=== PATIENT | female | born 1955 | race Caucasian/White ===

== ENCOUNTER 2016-11-25 01:44 | Emergency (ER) | payer MEDICARE ==
[~2016-11-25] VITALS: Ht 154.9 cm; Wt 51.1 kg
[~2016-11-25 01:44] MED LIST: AMLO5TAB2 PO; LISI40TA PO
[2016-11-25 01:57] VITALS: BP 172/103; PULSE 73; RESP 14; TEMP 97.7; O2SAT 100
[2016-11-25 03:05] VITALS: BP 199/88; PULSE 69; RESP 18; O2SAT 100
[2016-11-25 04:21] VITALS: BP 170/89; PULSE 75; RESP 18; O2SAT 97
--- NOTE | 2016-11-25 04:24 | PD ---
HPI Chief Complaint: ENT Complaint Time Seen by Provider: 04:22 Travel History International Travel<30 days: No Contact w/Intl Traveler<30days: No Traveled to known affect area: No History of Present Illness HPI 61-year-old female presents to the emergency department for complaint of acute sinusitis. Patient's had sinusitis before but has been several years. Patient complains of frontal and maxillary pressure and discomfort. Patient complains of post-nasal, pharyngeal drainage. Patient is not aware of fever or chills. Patient denies ear pain or sudden onset or worst ever headache. Patient does complain of some dizziness. Facial pain is worsened by leaning forward. Patient also has history of hypertension and is prescribed lisinopril 20 mg twice daily but has been running out of her medication for some time now and has been taking lisinopril 20 mg every other day. Patient rates overall discomfort 5/10 intensity. Patient does not complain of diplopia photophobia throat pain ear pain neck pain or stiffness chest pain shortness of breath or wheezing. Patient has had some post nasal drainage associated cough. Patient denies phlegm production. Patient states she typically is prescribed Bactrim as this is something she can afford. Patient responds well to oral antibiotic reportedly. Patient states she cannot take antihistamines due to her allergy to all antihistamines which causes her to have itching of the scalp and increased drowsiness. Patient denies any nausea or vomiting chest pain abdominal pain flank pain dysuria frequency urgency skin rash or other complaints. This episode has been progressively worsening 2 weeks. Patient has not followed up with her primary care provider. [facility] Past Medical History Narrative Medical Arthritis sinusitis hypertension fibromyalgia hysterectomy no tobacco use nursing notes reviewed Arthritis: Yes Diminished Hearing: No Hypertension: Yes Medical other: Yes (FIBROMYALGIA, CHRONIC JAW AND HIP PAIN) Tetanus Vaccination: Unknown Influenza Vaccination: No ?: Not Menopausal: Yes Past Surgical History Hysterectomy: Yes Social History Alcohol Use: No Tobacco Use: No Substance Use: No Allergies-Medications (Allergen,Severity, Reaction): Coded Allergies: Tramadol (Verified Allergy, Intermediate, severe vomiting, 11/25/16) Uncoded Allergies: liquid codeine (Allergy, Intermediate, severe vomiting, 09/26/16) Reported Meds & Prescriptions Reported Meds & Active Scripts Active Lisinopril 20 Mg Tab 20 Mg PO BID 30 Days Bactrim DS (Sulfamethoxazole-Trimethoprim) 800-160 Mg Tab 1 Tab PO BID Lisinopril 40 Mg Tab 40 Mg PO DAILY Amlodipine (Amlodipine Besylate) 5 Mg Tab 5 Mg PO DAILY Review of Systems Except as stated in HPI: all other systems reviewed are Neg General / Constitutional: No: Fever, Chills HENT: Positive: Lightheadedness, Congestion, No: Sore Throat Cardiovascular: No: Chest Pain or Discomfort Respiratory: Positive: Cough, No: Wheezing Gastrointestinal: No: Nausea, Vomiting Genitourinary: No: Dysuria Musculoskeletal: No: Myalgias, Arthralgias Skin: No Rash Neurologic: Positive: Dizziness, No: Weakness Psychiatric: No: Anxiety Endocrine: No: Heat Intolerance Hematologic/Lymphatic: No: Easy Bruising Physical Exam Narrative GENERAL: Well-developed well-nourished female in no acute distress no respiratory distress SKIN: Warm and dry. HEAD: Atraumatic. Normocephalic. EYES: Pupils equal and round. No scleral icterus. No injection or drainage. ENT: No nasal bleeding or discharge. Mucous membranes pink and moist. Frontal and maxillary sinuses left greater than right tender to percussion; airway is patent mucous membranes moist; tympanic membranes no redness no dullness no loss of landmarks no fluid no perforation NECK: Trachea midline. No JVD. Supple no meningismus no nuchal rigidity CARDIOVASCULAR: Regular rate and rhythm. RESPIRATORY: No accessory muscle use. Clear to auscultation. Breath sounds equal bilaterally. GASTROINTESTINAL: Abdomen soft, non-tender, nondistended. Hepatic and splenic margins not palpable. MUSCULOSKELETAL: Extremities without clubbing, cyanosis, or edema. No obvious deformities. NEUROLOGICAL: Awake and alert. No obvious cranial nerve deficits. Motor grossly within normal limits. Five out of 5 muscle strength in the arms and legs. Normal speech. PSYCHIATRIC: Appropriate mood and affect; insight and judgment normal. Data Data Last Documented VS Vital Signs Date Time Temp Pulse Resp B/P Pulse Ox O2 Delivery O2 Flow Rate FiO2 11/25/16 04:21 75 18 170/89 97 Room Air 11/25/16 01:57 97.7 Orders Sulfamet-Trimeth Ds 800-160 Mg (Bactrim (11/25/16 04:30) Lisinopril (Prinivil) (11/25/16 04:30) MDM Medical Decision Making Medical Screen Exam Complete: Yes Emergency Medical Condition: Yes Medical Record Reviewed: Yes Differential Diagnosis Dizziness, sinusitis, vertigo, uncontrolled hypertension Narrative Course Patient given first dose of oral antibiotic and her evening dose of lisinopril Patient provided refill prescription for lisinopril 20 mg twice daily Patient tolerated medication in the emergency department well and given prescriptions for outpatient management encouraged follow-up with her primary care physician. Patient requests that the lisinopril be prescribed as lisinopril 20 mg twice daily as she can afford to pay for the prescription when written as requested but cannot afford to buy the lisinopril 40mg daily; patient does take her medication as prescribed by her PCP as lisinopril 20mg (2 ) daily. Diagnosis Primary Impression: Sinusitis, acute maxillary Qualified Code: J01.01 - Acute recurrent maxillary sinusitis Additional Impressions: HTN (hypertension) Qualified Code: I10 - Essential hypertension Medication refill Referrals: Primary Care Physician call for appointment Patient Instructions: General Instructions Additional Instructions: Increase fluid hydration Complete course of antibiotic as prescribed Resume taking your blood pressure medication daily Follow-up with your primary care provider call office to schedule appointment on Sunday Return to the emergency department for any concerns or change in condition Take acetaminophen/Tylenol as needed for fever 100.4F or greater and/or for minor pain May take as tolerated ibuprofen/Advil/Motrin per package directions 40 mg as often as every 6-8 hours for fever 100.4F or greater or for pain associated inflammation May use Afrin nasal decongestion spray 1 spray to each nostril twice daily for up to 22 days avoid prolonged use as will cause rebound congestion; do not use Afrin nasal decongestant spray his blood pressure is not controlled (less than 140/90 mmHg) Med/Other Pt SpecificInfo: Prescription(s) given Scripts Lisinopril 20 Mg Tab20 Mg PO BID 30 Days Ref 0 Prov:Cuca Tobar MD 11/25/16 Sulfamethoxazole-Trimethoprim (Bactrim DS)800-160 Mg Tab1 Tab PO BID #14 TAB Ref 0 Prov:Cuca Tobar MD 11/25/16 Disposition: 01 DISCHARGE HOME Condition: Stable Cuca Tobar MD Nov 25, 2016 04:24
[2016-11-25] MEDS ORDERED: SULFAMETHOXAZOLE-TRIMETHOPRIM DS 800-160 MG TAB PO ONE (04:30)
[2016-11-25] MEDS ORDERED: LISINOPRIL 20 MG TAB PO ONE (04:30)
[2016-11-25] MEDS ORDERED: LISI-515 PO (04:32)
[2016-11-25] MEDS ORDERED: BACT800T5 PO (04:32)
== END 2016-11-25 04:56 | disposition home or self-care (01) ==
LOC: PHED 01:44
DX: J01.01 Acute recurrent maxillary sinusitis (principal); I10 Essential (primary) hypertension; R42 Dizziness and giddiness; R05 Cough; Z87.39 Personal history of other diseases of the musculoskeletal system and connective tissue; Z76.0 Encounter for issue of repeat prescription
CPT/HCPCS: 99283

== ENCOUNTER 2017-04-11 07:36 | Emergency (ER) | payer MEDICARE ==
[~2017-04-11] VITALS: Ht 154.9 cm; Wt 52.0 kg
[~2017-04-11 07:36] MED LIST changes: +BACT800T5 PO; +LISI-515 PO
[2017-04-11 07:53] VITALS: BP 220/101; PULSE 71; RESP 16; TEMP 97.6; O2SAT 98
--- NOTE | 2017-04-11 08:04 | PD ---
HPI Chief Complaint: ENT Complaint Time Seen by Provider: 08:03 Travel History International Travel<30 days: No Contact w/Intl Traveler<30days: No Traveled to known affect area: No History of Present Illness HPI 62-year-old female came to the emergency room with history of sinus headache. No history of fever or chills. Patient says the symptoms have been going on for past couple days. Incidentally when her vitals were checked her pressure was noticed to be extremely high. Patient says she knows that she has history of hypertension but has not taken her medications for past 2 months since she does not have a primary care and doesn't want to pay any co-pay for urgent care or any other place. She used to be on lisinopril 20 mg twice a day that seem to be working good for her. She does not appear to be in any significant distress currently. [facility] Past Medical History Narrative Medical List of her past medical, surgical, social and family history is reviewed from the nursing note. Arthritis: Yes Anxiety: Yes Cardiovascular Problems: Yes (htn on meds but been out for 2 months) Diminished Hearing: No Headaches: Yes Hypertension: Yes Respiratory: Yes (sinus problems chronic) Tetanus Vaccination: < 5 Years Influenza Vaccination: No ?: Not Menopausal: Yes Tubal Ligation: Yes Past Surgical History Hysterectomy: Yes Social History Alcohol Use: No Tobacco Use: No Substance Use: No Allergies-Medications (Allergen,Severity, Reaction): Coded Allergies: tramadol (Unverified Allergy, Intermediate, severe vomiting, 04/11/17) . Uncoded Allergies: liquid codeine (Allergy, Intermediate, severe vomiting, 04/11/17) . Comments List of her allergies reviewed from the nursing note. Reported Meds & Prescriptions Reported Meds & Active Scripts Active Amoxicillin 250 Mg Chew 250 Mg CHEW TID Lisinopril 20 Mg Tab 20 Mg PO BID Narrative Medication List of her home medications reviewed from the nursing note. Review of Systems Except as stated in HPI: all other systems reviewed are Neg Physical Exam Narrative GENERAL: Awake, alert, no obvious distress SKIN: Focused skin assessment warm/dry. HEAD: Atraumatic. Normocephalic. EYES: Pupils equal and round. No scleral icterus. No injection or drainage. ENT: No nasal bleeding or discharge. Mucous membranes pink and moist. No erythema of the pharynx or exudates. TMs look bilaterally normal. Tenderness on the maxillary and frontal sinus on palpation NECK: Trachea midline. No JVD. CARDIOVASCULAR: Regular rate and rhythm. No murmur appreciated. RESPIRATORY: No accessory muscle use. Clear to auscultation. Breath sounds equal bilaterally. GASTROINTESTINAL: Abdomen soft, non-tender, nondistended. Hepatic and splenic margins not palpable. MUSCULOSKELETAL: No obvious deformities. No clubbing. No cyanosis. No edema. NEUROLOGICAL: Awake and alert. No obvious cranial nerve deficits. Motor grossly within normal limits. Normal speech. PSYCHIATRIC: Appropriate mood and affect; insight and judgment normal. Data Data Last Documented VS Vital Signs Date Time Temp Pulse Resp B/P (MAP) Pulse Ox O2 Delivery O2 Flow Rate FiO2 04/11/17 09:38 78 16 179/93 (121) 98 04/11/17 08:44 Room Air 04/11/17 07:53 97.6 Orders Orders Complete Blood Count With Diff (04/11/17 08:10) Basic Metabolic Panel (Bmp) (04/11/17 08:10) Clonidine (Catapres) (04/11/17 08:15) Lisinopril (Prinivil) (04/11/17 09:00) Labs Laboratory Tests Test 04/11/17 08:20 White Blood Count 5.5 TH/MM3 Red Blood Count 4.30 MIL/MM3 Hemoglobin 13.0 GM/DL Hematocrit 38.8 % Mean Corpuscular Volume 90.2 FL Mean Corpuscular Hemoglobin 30.3 PG Mean Corpuscular Hemoglobin Concent 33.6 % Red Cell Distribution Width 12.1 % Platelet Count 240 TH/MM3 Mean Platelet Volume 7.9 FL Neutrophils (%) (Auto) 54.2 % Lymphocytes (%) (Auto) 37.9 % Monocytes (%) (Auto) 4.7 % Eosinophils (%) (Auto) 1.9 % Basophils (%) (Auto) 1.3 % Neutrophils # (Auto) 2.9 TH/MM3 Lymphocytes # (Auto) 2.1 TH/MM3 Monocytes # (Auto) 0.3 TH/MM3 Eosinophils # (Auto) 0.1 TH/MM3 Basophils # (Auto) 0.1 TH/MM3 CBC Comment DIFF FINAL Differential Comment Blood Urea Nitrogen 18 MG/DL Creatinine 0.76 MG/DL Random Glucose 93 MG/DL Calcium Level 8.9 MG/DL Sodium Level 142 MEQ/L Potassium Level 3.9 MEQ/L Chloride Level 109 MEQ/L Carbon Dioxide Level 26.2 MEQ/L Anion Gap 7 MEQ/L Estimat Glomerular Filtration Rate 77 ML/MIN MDM Medical Decision Making Medical Screen Exam Complete: Yes Emergency Medical Condition: Yes Medical Record Reviewed: Yes Differential Diagnosis Hypertensive crisis, sinusitis, medication noncompliance Narrative Course 8:53 AM blood test results are back and within normal limits. Patient was given by mouth clonidine 0.1 mg and the current blood pressure is 220. I have ordered by mouth lisinopril after her labs came back normal. Patient will be discharged home on prescription for lisinopril and amoxicillin. Procedures EKG Prior to Arrival: No Diagnosis Primary Impression: Sinusitis, acute maxillary Qualified Codes: J01.01 - Acute recurrent maxillary sinusitis Additional Impressions: HTN (hypertension) Qualified Codes: I10 - Essential (primary) hypertension Noncompliance with medication regimen Referrals: Primary Care Physician Additional Instructions: You must have a primary care physician to get her medication refill. He has been given information regarding [facility]. Please follow-up with them. Get the prescription refilled and take them as directed. Return to the ER if the condition worsens in any other new concerns. Med/Other Pt SpecificInfo: Prescription(s) given Scripts Amoxicillin (Amoxicillin) 250 Mg Chew 250 MG CHEW TID for Infection, #10 TAB 0 Refills Prov: Birgit Davies MD 04/11/17 Lisinopril (Lisinopril) 20 Mg Tab 20 MG PO BID, #30 TAB 0 Refills Prov: Birgit Davies MD 04/11/17 Disposition: 01 DISCHARGE HOME Condition: Stable Birgit Davies MD Apr 11, 2017 08:04
[2017-04-11] MEDS ORDERED: cloNIDine HCL 0.1 MG TAB PO ONE (08:15)
[2017-04-11 08:26] LABS: AUTOMATED NEUTROPHIL # 2.9 TH/MM3 (1.8-7.7); BASOPHIL # 0.1 TH/MM3 (0-0.2); BASOPHIL % 1.3 % (0.0-2.0); EOSINOPHIL # 0.1 TH/MM3 (0-0.4); EOSINOPHIL % 1.9 % (0.0-4.0); HEMATOCRIT 38.8 % (35.0-46.0); HEMO FLAGS DIFF FINAL; LYMPH % 37.9 % (9.0-44.0); LYMPHOCYTE # 2.1 TH/MM3 (1.0-4.8); MEAN CELL VOLUME 90.2 FL (80.0-100.0); MEAN CORPUSCULAR HEMOGLOBIN 30.3 PG (27.0-34.0); MEAN CORPUSCULAR HGB CONC 33.6 % (32.0-36.0); MONO % 4.7 % (0.0-8.0); NEUT % 54.2 % (16.0-70.0); PLATELET COUNT 240 TH/MM3 (150-450); RED CELL DISTRIBUTION WIDTH 12.1 % (11.6-17.2); WHITE BLOOD COUNT 5.5 TH/MM3 (4.0-11.0)
[2017-04-11 08:35] LABS: POTASSIUM 3.9 MEQ/L (3.5-5.1)
[2017-04-11 08:39] LABS: BICARBONATE 26.2 MEQ/L (21.0-32.0)
[2017-04-11] MEDS ORDERED: LISI-515 PO ×2 (08:39→08:56)
[2017-04-11 08:44] VITALS: BP 220/106; PULSE 74; RESP 16; O2SAT 99
[2017-04-11] MEDS ORDERED: AMOX250C CHEW (08:56)
[2017-04-11] MEDS ORDERED: LISINOPRIL 20 MG TAB PO ONE (09:00)
[2017-04-11] MEDS ORDERED: LISINOPRIL 5 MG TAB PO ONE (09:15)
[2017-04-11 09:38] VITALS: BP 179/93
== END 2017-04-11 09:58 | disposition home or self-care (01) ==
LOC: PHED 07:36
DX: J01.01 Acute recurrent maxillary sinusitis (principal); I10 Essential (primary) hypertension
CPT/HCPCS: 80048; 85025; 99284

== ENCOUNTER 2017-06-23 12:25 | Inpatient (IN) | payer MEDICARE ==
[~2017-06-23] VITALS: Ht 154.9 cm; Wt 50.5 kg
[2017-06-23] VITALS (13 sets, daily range): BP systolic 85–159; BP diastolic 52–109; PULSE 74–113; RESP 16–18; TEMP 97.5–97.9; O2SAT 97–100
[~2017-06-23 12:25] MED LIST changes: -AMLO5TAB2 PO; +AMOX250C CHEW; -BACT800T5 PO; -LISI40TA PO
[2017-06-23] MEDS ORDERED: ASPIRIN 325 MG TAB PO ONE (12:45)
[2017-06-23] MEDS ORDERED: NITROGLYCERIN 0.4 MG SL 25 TABS/BTL SL ONE (12:45)
[2017-06-23] MEDS ORDERED: SODIUM CHLORIDE 0.9% FLUSH 10 ML FLUSH IVF PRN (12:45)
--- NOTE | 2017-06-23 13:03 | RADRPT ---
EXAM DATE/TIME: 06/23/2017 12:42 [facility] COMPARISON: No previous studies available for comparison. INDICATIONS : Onset of mid chest pain today MEDICAL HISTORY : None. SURGICAL HISTORY : None. ENCOUNTER: Initial ACUITY: 1 day PAIN SCORE: 9/10 LOCATION: Bilateral chest FINDINGS: A single view of the chest demonstrates the lungs to be symmetrically aerated without evidence of mas s, infiltrate or effusion. The cardiomediastinal contours are unremarkable. Osseous structures are intact. CONCLUSION: No acute disease. Chris Shanks MD on June 23, 2017 at 13:01 Board Certified Radiologist. This report was verified electronically.
[2017-06-23 13:07] LABS: AUTOMATED NEUTROPHIL # 3.8 TH/MM3 (1.8-7.7); BASOPHIL # 0.1 TH/MM3 (0-0.2); BASOPHIL % 0.9 % (0.0-2.0); EOSINOPHIL % 0.7 % (0.0-4.0); HEMATOCRIT 38.1 % (35.0-46.0); HEMO FLAGS DIFF FINAL; LYMPHOCYTE # 1.6 TH/MM3 (1.0-4.8); MEAN CELL VOLUME 92.1 FL (80.0-100.0); MEAN CORPUSCULAR HGB CONC 33.6 % (32.0-36.0); MONO % 4.7 % (0.0-8.0); NEUT % 66.7 % (16.0-70.0); PLATELET COUNT 249 TH/MM3 (150-450); RED BLOOD COUNT 4.13 MIL/MM3 (4.00-5.30); RED CELL DISTRIBUTION WIDTH 12.9 % (11.6-17.2); WHITE BLOOD COUNT 5.8 TH/MM3 (4.0-11.0)
[2017-06-23 13:20] LABS: CHLORIDE 107 MEQ/L (98-107); POTASSIUM 3.7 MEQ/L (3.5-5.1); SODIUM (NA) 141 MEQ/L (136-145)
[2017-06-23 13:24] LABS: ANION GAP 8 MEQ/L (5-15); BICARBONATE 25.6 MEQ/L (21.0-32.0); BLOOD UREA NITROGEN 16 MG/DL (7-18); MAGNESIUM 2.4 MG/DL (1.5-2.5)
[2017-06-23 13:27] LABS: ALT (GPT) 46 U/L (10-53); APTT (PATIENT) 26.5 SEC (24.3-30.1); AST (GOT) 35 U/L (15-37); GLOMERULAR FILTRATION RATE 75 ML/MIN (>89); INTERNATIONAL NORMALIZED RATIO 0.9 RATIO; PROTHROMBIN TIME - PATIENT 10.3 SEC (9.8-11.6)
[2017-06-23 13:28] LABS: TOTAL BILIRUBIN ADULT 0.3 MG/DL (0.2-1.0)
[2017-06-23 13:30] LABS: ALKALINE PHOSPHATASE 73 U/L (45-117)
[2017-06-23 13:42] LABS: CREATINE KINASE 84 U/L (26-192)
[2017-06-23] MEDS ORDERED: ONDANSETRON HCL 4 MG/2 ML VIAL IV PUSH ONE (14:00)
[2017-06-23] MEDS ORDERED: MORPHINE SULFATE 8 MG/ML INJ IV PUSH ONE (14:00)
[2017-06-23] MEDS ORDERED: MORPHINE SULFATE 4 MG/ML INJ IV PUSH ONE (14:00)
[2017-06-23] MEDS ORDERED: HEPARIN SODIUM - IV 10,000 UNITS/10 ML VIAL IV ONE (14:30)
[2017-06-23] MEDS: HEPARIN-D5W 25,000 U/250 ML 250 ML IV PRN (15:05)
--- NOTE | 2017-06-23 15:29 | PD ---
HPI Chief Complaint: Chest Pain Time Seen by Provider: 12:31 Travel History International Travel<30 days: No Contact w/Intl Traveler<30days: No Traveled to known affect area: No History of Present Illness HPI 62 y/o female presents with central chest pain that started while she was talking at and anger management class today. She states she has history of anxiety but she has not gotten pain with that before. She states that she has no other concurrent complaints. The pain is sharp and worse when she moves. She denies other specific modifying factors. She denies taking an aspirin yet today. 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 She denies prior cardiac workup. She denies any other concurrent complaints. PFSH Past Medical History Arthritis: Yes Anxiety: Yes Cardiovascular Problems: Yes Diminished Hearing: No Headaches: Yes Hypertension: Yes Medical other: Yes (FIBROMYALGIA) Respiratory: Yes (sinus problems chronic) Immunizations Current: Yes Menopausal: Yes Tubal Ligation: Yes Past Surgical History Hysterectomy: Yes Family History Narrative Family History Denies cardiac family history Social History Alcohol Use: No Tobacco Use: No Substance Use: No Allergies-Medications (Allergen,Severity, Reaction): Coded Allergies: tramadol (Unverified Allergy, Intermediate, severe vomiting, 06/23/17) . Uncoded Allergies: liquid codeine (Allergy, Intermediate, severe vomiting, 06/23/17) Reported Meds & Prescriptions Reported Meds & Active Scripts Active Lisinopril 20 Mg Tab 20 Mg PO BID Review of Systems Except as stated in HPI: all other systems reviewed are Neg Physical Exam Narrative GENERAL: Well-nourished, well-developed patient. Anxious SKIN: Warm and dry. HEAD: Normocephalic and atraumatic. EYES: No injection or drainage. ENT: No nasal drainage noted. NECK: Supple, trachea midline. CARDIOVASCULAR: Regular rate and rhythm RESPIRATORY: Breath sounds equal bilaterally. No accessory muscle use. GASTROINTESTINAL: Abdomen soft, non-tender, nondistended. EXTREMITIES: No edema. NEUROLOGICAL: Awake and alert. Motor and sensory grossly within normal limits. Normal speech. Data Data Last Documented VS Vital Signs Date Time Temp Pulse Resp B/P (MAP) Pulse Ox O2 Delivery O2 Flow Rate FiO2 06/23/17 14:11 16 06/23/17 13:03 97.5 84 159/94 (115) 99 Room Air Orders Orders Electrocardiogram (06/23/17 12:35) Ckmb (Isoenzyme) Profile (06/23/17 12:35) Complete Blood Count With Diff (06/23/17 12:35) Comprehensive Metabolic Panel (06/23/17 12:35) Magnesium (Mg) (06/23/17 12:35) Prothrombin Time / Inr (Pt) (06/23/17 12:35) Act Partial Throm Time (Ptt) (06/23/17 12:35) Troponin I (06/23/17 12:35) Chest, Single Ap (06/23/17 12:35) Ecg Monitoring (06/23/17 12:35) Bilateral Bp Monitoring (06/23/17 12:35) Iv Access Insert/Monitor (06/23/17 12:35) Oximetry (06/23/17 12:35) Aspirin (Aspirin) (06/23/17 12:45) Sodium Chloride 0.9% Flush (Ns Flush) (06/23/17 12:45) Nitroglycerin Sl (Nitrostat Sl) (06/23/17 12:45) Electrocardiogram (06/23/17 12:27) Morphine Inj (Morphine Inj) (06/23/17 14:00) Ondansetron Inj (Zofran Inj) (06/23/17 14:00) Morphine Inj (Morphine Inj) (06/23/17 14:00) Code Status (06/23/17 14:09) Admit Order (Ed Use Only) (06/23/17 14:20) Heparin Infusion GRETEL.Q1H (06/23/17 14:20) Heparin Inj (Heparin Inj) (06/23/17 14:30) Heparin Inj (Heparin Inj) (06/23/17 20:30) Heparin Inj (Heparin Inj) (06/23/17 20:30) Heparin-D5w 25,000 U/250 Ml (Heparin-D5w (06/23/17 15:00) Cbc No Diff, Includes Plts (06/26/17 06:00) Act Partial Throm Time (Ptt) (06/23/17 21:20) Occult Blood (Hemoccult) Stool (06/23/17 14:20) Consult Cardiology (06/23/17 ) Labs Laboratory Tests Test 06/23/17 12:30 White Blood Count 5.8 TH/MM3 Red Blood Count 4.13 MIL/MM3 Hemoglobin 12.8 GM/DL Hematocrit 38.1 % Mean Corpuscular Volume 92.1 FL Mean Corpuscular Hemoglobin 31.0 PG Mean Corpuscular Hemoglobin Concent 33.6 % Red Cell Distribution Width 12.9 % Platelet Count 249 TH/MM3 Mean Platelet Volume 8.5 FL Neutrophils (%) (Auto) 66.7 % Lymphocytes (%) (Auto) 27.0 % Monocytes (%) (Auto) 4.7 % Eosinophils (%) (Auto) 0.7 % Basophils (%) (Auto) 0.9 % Neutrophils # (Auto) 3.8 TH/MM3 Lymphocytes # (Auto) 1.6 TH/MM3 Monocytes # (Auto) 0.3 TH/MM3 Eosinophils # (Auto) 0.0 TH/MM3 Basophils # (Auto) 0.1 TH/MM3 CBC Comment DIFF FINAL Differential Comment Prothrombin Time 10.3 SEC Prothromb Time International Ratio 0.9 RATIO Activated Partial Thromboplast Time 26.5 SEC Blood Urea Nitrogen 16 MG/DL Creatinine 0.78 MG/DL Random Glucose 107 MG/DL Total Protein 7.8 GM/DL Albumin 4.6 GM/DL Calcium Level 9.1 MG/DL Magnesium Level 2.4 MG/DL Alkaline Phosphatase 73 U/L Aspartate Amino Transf (AST/SGOT) 35 U/L Alanine Aminotransferase (ALT/SGPT) 46 U/L Total Bilirubin 0.3 MG/DL Sodium Level 141 MEQ/L Potassium Level 3.7 MEQ/L Chloride Level 107 MEQ/L Carbon Dioxide Level 25.6 MEQ/L Anion Gap 8 MEQ/L Estimat Glomerular Filtration Rate 75 ML/MIN Total Creatine Kinase 84 U/L Troponin I 1.07 NG/ML [facility] Medical Decision Making Medical Screen Exam Complete: Yes Emergency Medical Condition: Yes Medical Record Reviewed: Yes (past history confirmed) Interpretation(s) EKG #1 shows wandering baseline with possible elevation V2 Repeat EKG shows no significant concurrent ST elevation or T-wave inversion with improved baseline CBC & BMP Diagram 06/23/17 12:30 Total Protein 7.8, Albumin 4.6, Calcium Level 9.1, Magnesium Level 2.4, Alkaline Phosphatase 73, Aspartate Amino Transf (AST/SGOT) 35, Alanine Aminotransferase (ALT/SGPT) 46, Total Bilirubin 0.3 Last 24 hours Impressions Chest X-Ray 06/23/17 1235 Signed Impressions: Service Date/Time: Friday, June 23, 2017 12:42 - CONCLUSION: No acute disease. Chris Shanks MD troponin elevated at 1.07 Differential Diagnosis NV, gastritis, musculoskeletal, takotsubo syndrome, pericarditis Narrative Course Will check blood work, EKG, chest x-ray and dose with aspirin and nitroglycerin and reevaluate Patient has gone from a 9 to a 5. Dose with morphine and follow. Patient updated about troponin and initially wanting to leave AMA but understands significance of troponin and agrees to stay. Patient states if she gets sicker she does not want to be intubated but she is okay with compressions, electric shock and CPR Critical Care Narrative Aggregate critical care time was 35 minutes. Time to perform other separately billable procedures was not included in the critical care time. My time did not include minutes spent treating any other patients simultaneously or on activities that did not directly contribute to the patient's treatment. The services I provided to this patient were to treat and/or prevent clinically significant deterioration that could result in: Cardiogenic shock, arrhythmia, I provided critical care services requiring my management, as noted below: Chart data review, documentation time, medication orders and management, vital sign assessments/reviewing monitor data, ordering and reviewing lab tests, ordering and interpreting/reviewing x-rays and diagnostic studies, care of the patient and discussion of the patient with the admitting physicians. Physician Communication Physician Communication dr abel states to place on heparin and keep npo with admit to [facility] last agrees to admit Diagnosis Primary Impression: NSTEMI (non-ST elevated myocardial infarction) Additional Impression: HTN (hypertension) Qualified Codes: I10 - Essential (primary) hypertension Admitting Information Admitting Physician Requests: Admit Bri Chung MD Jun 23, 2017 15:29
--- NOTE | 2017-06-23 16:53 | HHI.HP ---
[facility] Non-Staff Admission Diagnosis NSTEMI Diagnoses: Chief Complaint: chest pain Travel History International Travel<30 Days: No Contact w/Intl Traveler <30 Da: No Traveled to Known Affected Are: No History of Present Illness 62-year-old white female being admitted for an NSTEMI. Patient was in her usual state of health until about earlier this morning when she was in an anger management class and suddenly experienced an onset of 10 out of 10 crushing chest pain that radiated to her left arm. Patient had some shortness of breath and mild nausea. No vomiting. Was not able to identify any alleviating or exacerbating factors until she got to the emergency room where she got some nitroglycerin which helped her pain. Patient denies ever experiencing such an event in the past, denies any cardiac history. Review of Systems Except as stated in HPI: all other systems reviewed are Neg Past Family Social History Past Medical History Hypertension, arthritis, anxiety, fibromyalgia Past Surgical History Hysterectomy Allergies: Coded Allergies: tramadol (Unverified Allergy, Intermediate, severe vomiting, 06/23/17) . Uncoded Allergies: liquid codeine (Allergy, Intermediate, severe vomiting, 06/23/17) Family History Lung cancer, breast cancer, brain cancer Social History Denies smoking, drug use, alcohol use Physical Exam Vital Signs Vital Signs Date Time Temp Pulse Resp B/P (MAP) Pulse Ox O2 Delivery O2 Flow Rate FiO2 06/23/17 14:11 16 06/23/17 13:11 16 06/23/17 13:03 97.5 84 16 159/94 (115) 99 Room Air 06/23/17 12:30 113 20 99 Room Air 06/23/17 12:30 16 99 Room Air 06/23/17 12:30 97.9 113 16 153/109 (124) 99 Physical Exam VS: Afebrile GENERAL: White female, middle-aged, lying in bed, awake, alert, no acute distress SKIN: Warm and dry. EYES: No scleral icterus. No injection or drainage. ENT: No nasal bleeding or discharge. Mucous membranes pink and moist. CARDIOVASCULAR: Regular rate and rhythm. no murmurs RESPIRATORY: No accessory muscle use. Clear to auscultation. Breath sounds equal bilaterally. GASTROINTESTINAL: Abdomen soft, non-tender, nondistended. Hepatic and splenic margins not palpable. Extremities: No clubbing, cyanosis, or edema. No obvious deformities. MUSCULOSKELETAL: Extremities without clubbing, cyanosis, or edema. No obvious deformities. grossly intact ROM with 5/5 strength in upper and lower extremities proximally. Has some tenderness to the sternum but the patient states this is due to her fibromyalgia NEUROLOGICAL: Awake and alert. No obvious cranial nerve deficits. No facial droop nor slurred speech noted. PSYCHIATRIC: Appropriate mood and affect; insight and judgment normal. Laboratory Laboratory Tests Test 06/23/17 12:30 White Blood Count 5.8 Red Blood Count 4.13 Hemoglobin 12.8 Hematocrit 38.1 Mean Corpuscular Volume 92.1 Mean Corpuscular Hemoglobin 31.0 Mean Corpuscular Hemoglobin Concent 33.6 Red Cell Distribution Width 12.9 Platelet Count 249 Mean Platelet Volume 8.5 Neutrophils (%) (Auto) 66.7 Lymphocytes (%) (Auto) 27.0 Monocytes (%) (Auto) 4.7 Eosinophils (%) (Auto) 0.7 Basophils (%) (Auto) 0.9 Neutrophils # (Auto) 3.8 Lymphocytes # (Auto) 1.6 Monocytes # (Auto) 0.3 Eosinophils # (Auto) 0.0 Basophils # (Auto) 0.1 CBC Comment DIFF FINAL Differential Comment Prothrombin Time 10.3 Prothromb Time International Ratio 0.9 Activated Partial Thromboplast Time 26.5 Blood Urea Nitrogen 16 Creatinine 0.78 Random Glucose 107 Total Protein 7.8 Albumin 4.6 Calcium Level 9.1 Magnesium Level 2.4 Alkaline Phosphatase 73 Aspartate Amino Transf (AST/SGOT) 35 Alanine Aminotransferase (ALT/SGPT) 46 Total Bilirubin 0.3 Sodium Level 141 Potassium Level 3.7 Chloride Level 107 Carbon Dioxide Level 25.6 Anion Gap 8 Estimat Glomerular Filtration Rate 75 Total Creatine Kinase 84 Troponin I 1.07 Result Diagram: 06/23/17 1230 06/23/17 1230 Imaging Last Impressions Chest X-Ray 06/23/17 1235 Signed Impressions: Service Date/Time: Friday, June 23, 2017 12:42 - CONCLUSION: No acute disease. Chris MD Jan Bella VTE Risk Assessment Caprini VTE Risk Assessment: Mod/High Risk (score >= 2) Caprini Risk Assessment Model Point Value = 1 Point Value = 2 Point Value = 3 Point Value = 5 Age 41-60 Minor surgery BMI > 25 kg/m2 Swollen legs Varicose veins or History of unexplained or recurrent spontaneous Oral contraceptives or hormone replacement Sepsis (< 1 month) Serious lung disease, including pneumonia (< 1 month) Abnormal pulmonary function Acute myocardial infarction Congestive heart failure (< 1 month) History of inflammatory bowel disease Medical patient at bed rest Age 61-74 Arthroscopic surgery Major open surgery (> 45 min) Laparoscopic surgery (> 45 min) Malignancy Confined to bed (> 72 hours) Immobilizing plaster cast Central venous access Age >= 75 History of VTE Family history of VTE Factor V Leiden Prothrombin [id number] Lupus anticoagulant Anticardiolipin antibodies Elevated serum homocysteine Heparin-induced thrombocytopenia Other congenital or acquired thrombophilia Stroke (< 1 month) Elective arthroplasty Hip, pelvis, or leg fracture Acute spinal cord injury (< 1 month) Prophylaxis Regimen Total Risk Factor Score Risk Level Prophylaxis Regimen 0-1 Low Early ambulation 2 Moderate Order ONE of the following: *Sequential Compression Device (SCD) *Heparin 5000 units SQ BID 3-4 Higher Order ONE of the following medications: *Heparin 5000 units SQ TID *Enoxaparin/Lovenox 40 mg SQ daily (WT < 150 kg, CrCl > 30 mL/min) *Enoxaparin/Lovenox 30 mg SQ daily (WT < 150 kg, CrCl > 10-29 mL/min) *Enoxaparin/Lovenox 30 mg SQ BID (WT < 150 kg, CrCl > 30 mL/min) AND/OR *Sequential Compression Device (SCD) 5 or more Highest Order ONE of the following medications: *Heparin 5000 units SQ TID (Preferred with Epidurals) *Enoxaparin/Lovenox 40 mg SQ daily (WT < 150 kg, CrCl > 30 mL/min) *Enoxaparin/Lovenox 30 mg SQ daily (WT < 150 kg, CrCl > 10-29 mL/min) *Enoxaparin/Lovenox 30 mg SQ BID (WT < 150 kg, CrCl > 30 mL/min) AND *Sequential Compression Device (SCD) Assessment and Plan Assessment and Plan NSTEMI - Discussed with ER attending who was has related that cardiology has been consulted, patient will be transferred [facility] - Aspirin, starting Lipitor, Lopressor, heparin, Nitroglycerin prn - telemetry - I independently reviewed EKG which shows sinus tachycardia with no acute ST segment or T-wave changes that are concerning for ischemia or infarction. HTN - continue home lisinopril heparin for DVT prevention Physician Certification 2 Midnight Certification Type: Admission for Inpatient Services Order for Inpatient Services The services are ordered in accordance with Medicare regulations or non- Medicare payer requirements, as applicable. In the case of services not specified as inpatient-only, they are appropriately provided as inpatient services in accordance with the 2-midnight benchmark. Estimated LOS (days): 2 2 days is the estimated time the patient will need to remain in the hospital, assuming treatment plan goals are met and no additional complications. Post-Hospital Plan: Home Mark Ying MD Jun 23, 2017 16:53
[2017-06-23] MEDS ORDERED: NITROGLYCERIN 0.3 MG SL 100 TABS/BTL SL PRN (17:00)
[2017-06-23] MEDS ORDERED: ATORVASTATIN 40 MG TAB PO ONE (18:00)
[2017-06-23] MEDS ORDERED: HEPARIN SODIUM - IV 10,000 UNITS/10 ML VIAL IV PRN ×2 (20:30)
[2017-06-23] MEDS ORDERED: MORPHINE SULFATE 2 MG/ML INJ SQ PRN (20:45)
[2017-06-23] MEDS ORDERED: LISINOPRIL 20 MG TAB PO SCH (21:00)
[2017-06-24] VITALS (23 sets, daily range): BP systolic 100–117; BP diastolic 58–74; PULSE 63–93; RESP 16–18; TEMP 97.9–98.7; O2SAT 96–99
[2017-06-24 00:23] LABS: APTT (PATIENT) 57.3 SEC (24.3-30.1)
[2017-06-24 00:26] LABS: BICARBONATE 29.2 MEQ/L (21.0-32.0); POTASSIUM 3.5 MEQ/L (3.5-5.1)
[2017-06-24 07:59] LABS: APTT (PATIENT) 55.7 SEC (24.3-30.1)
[2017-06-24] MEDS ORDERED: POTASSIUM CHLORIDE 10 MEQ CAP PO ONE (08:45)
[2017-06-24] MEDS ORDERED: LISINOPRIL 20 MG TAB PO SCH (09:00)
--- NOTE | 2017-06-24 11:46 | MB ---
cc: SUSAN MUÑOZ MD DATE OF CONSULTATION: 06/24/2017 REASON FOR CONSULTATION: Non ST-elevation GA. HISTORY OF PRESENT ILLNESS This very nice 62-year-old female without significant past medical history for heart disease but does have a history hypertension, arthritis and anxiety. Yesterday she was in an anger management class when she started developing some sudden onset of substernal chest pain radiating towards the left arm. She did have associated shortness of breath and nausea. The pain became so severe she presented to the emergency department. There, electrocardiogram some more nonspecific changes primarily in the inferior leads. She did get nitroglycerin with partial relief. Over the course of her emergency department visit, her symptoms subsided. She is currently chest pain free. The troponin came back positive and she was transferred over to [facility] for consideration of cardiac catheterization. Denies any prior cardiac catheterization or stress testing. PAST MEDICAL HISTORY: 1. Hypertension. 2. Arthritis. 3. Anxiety. 4. Fibromyalgia. ALLERGIES: TRAMADOL FAMILY HISTORY: Denies any family history of early coronary disease or sudden cardiac . SOCIAL HISTORY Denies alcohol, tobacco or drug use. REVIEW OF SYSTEMS 12-point review of systems was performed, negative otherwise as noted in the history of present illness. PHYSICAL EXAMINATION VITAL SIGNS: Temperature 98, pulse 77, blood pressure 108/71 mmHg. General: Alert and oriented x3 in no acute distress. HEENT: Exam shows pupils reactive to light and accommodation. Extraocular movements intact. No elevation in the jugular venous distention. No thyromegaly, no lymphadenopathy. No carotid bruits. Lungs: Clear to auscultation bilaterally. Cardiovascular: Regular rate and rhythm without murmurs, rubs or gallops. Abdomen: Nontender, nondistended. Good bowel sounds. No hepatosplenomegaly. Extremities: No clubbing, cyanosis or edema. Good peripheral pulses. Cranial nerves intact. Motor sensory is grossly intact. Electrocardiogram: Normal sinus rhythm, ST depression on the initial electrocardiogram, inferior lateral leads. Right-sided electrocardiogram shows some mild T-wave changes. LABORATORY DATA: INR 0.9, sodium 143, potassium 3.5, BUN 16, creatinine 0.8. Troponin peaked at 4.8. WBC 5.8, hemoglobin 12.8, platelet count is 249. ASSESSMENT Non ST-elevation GA. Hypertension. PLAN The patient's symptoms were suggestive of acute coronary syndrome with some nonspecific electrocardiographic changes. Cardiac biomarkers are elevated consistent with [id number] myocardial infarction. We discussed cardiac catheterization. She is agreeable. We will proceed with cardiac catheterization tomorrow. Will make her n.p.o. after midnight. Will continue heparin and aggressive medical management. Will obtain 2-D echocardiogram. MD NUZHAT Rob/CHRISTELLE /10:44 AM /11:18 AM
--- NOTE | 2017-06-24 12:56 | EKG ---
Date Performed: 06/23/2017 Time Performed: 20:46:00 PTAGE: 62 years EKG: Sinus rhythm Reversal of limb leads and reversal of chest leads Recommend repeat tracing with proper hook-up of l denise Abnormal ECG PREVIOUS TRACING : 06/23/2017 12.36 DOCTOR: Facundo Vance Interpretating Date/Time 06/24/2017 12:55:56
--- NOTE | 2017-06-24 12:56 | EKG ---
Date Performed: 06/23/2017 Time Performed: 12:27:30 PTAGE: 62 years EKG: SINUS TACHYCARDIA Poor initial anterior forces NO PREVIOUS TRACING DOCTOR: Facundo Vance Interpretating Date/Time 06/24/2017 12:54:41
--- NOTE | 2017-06-24 12:56 | EKG ---
Date Performed: 06/23/2017 Time Performed: 12:36:35 PTAGE: 62 years EKG: Sinus rhythm NORMAL ECG PREVIOUS TRACING : 06/23/2017 12.27 Since previous tracing, heart rate is slower and there is s light improvement in the R-force in lead V2. DOCTOR: Facundo Vance Interpretating Date/Time 06/24/2017 12:55:09
--- NOTE | 2017-06-24 12:58 | EKG ---
Date Performed: 06/24/2017 Time Performed: 03:13:26 PTAGE: 62 years EKG: Sinus rhythm Reversal of limb leads and reversal of chest leads Recommend repeat tracing with proper hook-up Abno rmal ECG PREVIOUS TRACING : 06/23/2017 20.46 Since previous tracing, the chest and limb lead hook-ups ar e still incorrect. DOCTOR: Facundo Vance Interpretating Date/Time 06/24/2017 12:56:44
--- NOTE | 2017-06-24 13:18 | ECHRPT ---
Indication: CHEST PAIN CONCLUSIONS Normal left ventricular size. Mild concentric left ventricular hypertrophy. The left ventricular systolic function is severely reduced with an estimated ejection fraction in th e range of 30-35%. Moderate hypokinesis of mid anterior, apical, inferoapical segments. The left atrial size is mildly dilated. Mild mitral valve regurgitation. There is mild tricuspid valve regurgitation. The estimated pulmonary arterial pressure is 26.8 mmHg. BP: 100 / 59 HR: 71 Rhythm: Sinus MEASUREMENTS (Male / Female) Normal Values Technical Quality:Fair 2D ECHO LV Diastolic Diameter PLAX 4.7 cm 4.2 - 5.9 / 3.9 - 5.3 cm LV Systolic Diameter PLAX 3.7 cm IVS Diastolic Thickness 0.7 cm 0.6 - 1.0 / 0.6 - 0.9 cm LVPW Diastolic Thickness 0.7 cm 0.6 - 1.0 / 0.6 - 0.9 cm LV Relative Wall Thickness 0.3 LVOT Diameter 1.9 cm Aortic Root Diameter 2.7 cm LA Systolic Diameter LX 3.1 cm 3.0 - 4.0 / 2.7 - 3.8 cm M-MODE AV Cusp Separation MM 1.9 cm DOPPLER AV Peak Velocity 117.0 cm/s AV Peak Gradient 5.5 mmHg AV Mean Gradient 3.0 mmHg AV Velocity Time Integral 18.8 cm LVOT Peak Velocity 79.0 cm/s LVOT Peak Gradient 2.5 mmHg LVOT Velocity Time Integral 13.7 cm LVOT Cardiac Index 1871.1 cm/minm AV Area Cont Eq vti 2.1 cm AV Area Cont Eq pk 1.9 cm Mitral E Point Velocity 53.3 cm/s Mitral A Point Velocity 79.0 cm/s Mitral E to A Ratio 0.7 LV E' Lateral Velocity 4.2 cm/s Mitral E to LV E' Lateral Ratio 12.7 LV E' Septal Velocity 3.5 cm/s Mitral E to LV E' Septal Ratio 15.2 TR Peak Velocity 205.0 cm/s TR Peak Gradient 16.8 mmHg Right Atrial Pressure 10.0 mmHg Pulmonary Artery Systolic Pressu 26.8 mmHg Right Ventricular Systolic Press 26.8 mmHg PV Peak Velocity 68.4 cm/s PV Peak Gradient 1.9 mmHg FINDINGS LEFT VENTRICLE Normal left ventricular size. Mild concentric left ventricular hypertrophy. The left ventricular systolic function is severely reduced with an estimated ejection fraction in th e range of 30-35%. Moderate hypokinesis of mid anterior, apical, inferoapical segments. RIGHT VENTRICLE Normal right ventricular size and systolic function. LEFT ATRIUM The left atrial size is mildly dilated. RIGHT ATRIUM The right atrial size is normal. ATRIAL SEPTUM Normal atrial septal thickness without atrial level shunting by limited color doppler interrogation. AORTA The aortic root and proximal ascending aorta are normal in size on limited imaging. MITRAL VALVE Mild mitral valve regurgitation. AORTIC VALVE Trileaflet aortic valve. No aortic valve stenosis or regurgitation. TRICUSPID VALVE There is mild tricuspid valve regurgitation. The estimated pulmonary arterial pressure is 26.8 mmHg. PULMONARY VALVE No pulmonary valve regurgitation or stenosis. VESSELS The inferior vena cava is normal in size. PERICARDIUM No pericardial effusion. Endy Mason MD, FACC (Electronically Signed) Final Date:24 June 2017 13:17
--- NOTE | 2017-06-24 15:45 | HHI.PR ---
Subjective Remarks The patient was anxious about the procedure tomorrow. She said her chest pain has resolved. She denies any shortness of breath. She says her blood pressure is never low and she believes the heparin drip is causing that. She has been ambulating. Discussed with nursing of the bedside. Objective Vitals Vital Signs Date Time Temp Pulse Resp B/P (MAP) Pulse Ox O2 Delivery O2 Flow Rate FiO2 06/24/17 15:00 73 06/24/17 15:00 98.6 78 16 103/59 (74) 99 06/24/17 14:00 75 06/24/17 13:00 78 06/24/17 12:00 75 06/24/17 11:00 97.9 77 16 117/74 (88) 98 06/24/17 11:00 76 06/24/17 10:00 77 06/24/17 09:00 78 06/24/17 08:00 77 06/24/17 08:00 98.7 77 16 108/71 (83) 98 06/24/17 06:09 71 06/24/17 05:04 71 06/24/17 04:20 66 06/24/17 03:45 63 06/24/17 03:45 98.0 66 18 100/59 (73) 97 06/24/17 02:05 68 06/24/17 01:12 65 06/24/17 00:28 70 06/23/17 23:15 97.7 82 17 85/52 (63) 97 06/23/17 23:00 74 06/23/17 22:00 76 06/23/17 21:00 82 06/23/17 20:00 88 06/23/17 19:34 06/23/17 19:30 97.9 83 18 153/85 (107) 100 06/23/17 19:21 85 16 100 Room Air 06/23/17 19:13 85 16 145/89 (107) 100 Room Air 06/23/17 16:55 76 16 145/74 (97) 98 Room Air 06/23/17 15:45 80 16 148/80 (102) 99 Room Air I/O 06/23/17 06/23/17 06/23/17 06/24/17 06/24/17 06/24/17 07:00 15:00 23:00 07:00 15:00 23:00 Intake Total 360 ml Output Total 300 ml Balance 60 ml Intake Oral 360 ml Output Urine Total 300 ml # Voids 1 Result Diagram: 06/23/17 1230 06/23/17 2330 Imaging Last Impressions Chest X-Ray 06/23/17 1235 Signed Impressions: Service Date/Time: Friday, June 23, 2017 12:42 - CONCLUSION: No acute disease. Chris Shanks MD Objective Remarks GENERAL: No acute distress. SKIN: Warm and dry. EYES: No scleral icterus. No injection or drainage. ENT: No nasal bleeding or discharge. Mucous membranes pink and moist. CARDIOVASCULAR: Regular rate and rhythm. No murmurs. RESPIRATORY: No accessory muscle use. Clear to auscultation. Breath sounds equal bilaterally. GASTROINTESTINAL: Abdomen soft, non-tender, nondistended. Hepatic and splenic margins not palpable. EXTREMITIES: No clubbing, cyanosis, or edema. No obvious deformities. MUSCULOSKELETAL: Extremities without clubbing, cyanosis, or edema. No obvious deformities. Grossly intact ROM with 5/5 strength in upper and lower extremities proximally. NEUROLOGICAL: Awake and alert. No obvious cranial nerve deficits. No facial droop nor slurred speech noted. PSYCHIATRIC: Appropriate mood and affect; insight and judgment normal. Medications and IVs Current Medications Medications (Trade) Dose Ordered Sig/Kel Route Start Time Stop Time Status Last Admin (NS Flush) 2 ml UNSCH PRN IVF 06/23/17 12:45 (Heparin Inj) 5,000 units UNSCH PRN IV 06/23/17 20:30 (Heparin Inj) 2,500 units UNSCH PRN IV 06/23/17 20:30 Heparin Sodium/ Dextrose 250 ml @ 6 mls/hr TITRATE PRN IV 06/23/17 15:00 06/23/17 15:05 (Lipitor) 40 mg HS PO 06/24/17 21:00 (Nitrostat Sl) 0.3 mg Q5M PRN SL 06/23/17 17:00 (Prinivil) 40 mg DAILY PO 06/24/17 09:00 Future Hold (Morphine Inj) 2 mg Q3H PRN SQ 06/23/17 20:45 A/P Assessment and Plan NSTEMI Troponins were elevated at 4.8. Cardiology consult appreciated. Chest pain has resolved. EKG without acute ischemia. Chest x-ray unremarkable. - Continue heparin drip. - continue statin. - Check lipid profile and hemoglobin A1c. - telemetry. - Catheterization in the a.m. per cardiology. HTN Blood pressure has been borderline low. - hold home lisinopril. - Hold off on starting a beta kim at this time. heparin gtt for DVT prevention Discharge Planning Awaiting cardiac catheterization and cardiology clearance Ayo Lloyd DO Jun 24, 2017 15:45
[2017-06-24] MEDS: ATORVASTATIN 40 MG TAB PO SCH (20:36)
[2017-06-25] VITALS (17 sets, daily range): BP systolic 114–152; BP diastolic 58–76; PULSE 59–100; RESP 16; TEMP 97.4–98; O2SAT 98–99
[2017-06-25] MEDS: HEPARIN-D5W 25,000 U/250 ML 250 ML IV PRN (00:46)
[2017-06-25 05:07] LABS: APTT (PATIENT) 59.4 SEC (24.3-30.1)
[2017-06-25 05:13] LABS: GLUCOSE,FASTING 95 MG/DL (74-99)
[2017-06-25 05:19] LABS: HDL CHOLESTEROL 30.1 MG/DL (40.0-60.0); LDL CHOLESTEROL 53 MG/DL (0-99)
[2017-06-25] MEDS ORDERED: HEPARIN-D5W 25,000 U/250 ML 250 ML IV PRN (07:30)
--- NOTE | 2017-06-25 07:52 | PD.CARD.PN ---
Subjective Subjective Remarks feeling well. denies chest pain,sob or palpitations. Objective Medications Current Medications Medications (Trade) Dose Ordered Sig/Kel Route Start Time Stop Time Status Last Admin (NS Flush) 2 ml UNSCH PRN IVF 06/23/17 12:45 (Heparin Inj) 5,000 units UNSCH PRN IV 06/23/17 20:30 (Heparin Inj) 2,500 units UNSCH PRN IV 06/23/17 20:30 (Lipitor) 40 mg HS PO 06/24/17 21:00 06/24/17 20:36 (Nitrostat Sl) 0.3 mg Q5M PRN SL 06/23/17 17:00 (Prinivil) 40 mg DAILY PO 06/24/17 09:00 Future Hold (Morphine Inj) 2 mg Q3H PRN SQ 06/23/17 20:45 Heparin Sodium/ Dextrose 250 ml @ 6 mls/hr TITRATE PRN IV 06/25/17 07:30 Vital Signs / I&O Vital Signs Date Time Temp Pulse Resp B/P (MAP) Pulse Ox O2 Delivery O2 Flow Rate FiO2 06/25/17 06:09 61 06/25/17 05:10 63 06/25/17 04:17 97.5 72 16 114/58 (76) 98 06/25/17 04:17 59 06/25/17 02:02 63 06/25/17 01:00 66 06/25/17 00:00 66 06/24/17 23:00 98.2 67 18 104/58 (73) 99 06/24/17 23:00 69 06/24/17 22:00 66 06/24/17 21:00 74 06/24/17 20:00 74 06/24/17 19:05 98.1 74 18 103/61 (75) 96 06/24/17 19:05 93 06/24/17 18:00 72 06/24/17 17:00 74 06/24/17 16:00 70 06/24/17 15:00 73 06/24/17 15:00 98.6 78 16 103/59 (74) 99 06/24/17 14:00 75 06/24/17 13:00 78 06/24/17 12:00 75 06/24/17 11:00 97.9 77 16 117/74 (88) 98 06/24/17 11:00 76 06/24/17 10:00 77 06/24/17 09:00 78 06/24/17 08:00 77 06/24/17 08:00 98.7 77 16 108/71 (83) 98 I/O 06/24/17 06/24/17 06/24/17 06/25/17 06/25/17 06/25/17 07:00 15:00 23:00 07:00 15:00 23:00 Intake Total 360 ml 320 ml 240 ml Output Total 300 ml 900 ml 350 ml Balance 60 ml -580 ml -110 ml Intake Oral 360 ml 320 ml 240 ml Output Urine Total 300 ml 900 ml 350 ml # Voids 1 Physical Exam GENERAL: SKIN: Warm and dry. HEAD: Atraumatic. Normocephalic. EYES: Pupils equal and round. ENT: No nasal bleeding or discharge. Mucous membranes pink and moist. NECK: Trachea midline. No JVD. CARDIOVASCULAR: Regular rate and rhythm. no murmurs. RESPIRATORY: No accessory muscle use. Clear to auscultation. Breath sounds equal bilaterally. GASTROINTESTINAL: Abdomen soft, non-tender, nondistended. MUSCULOSKELETAL: Extremities without clubbing, cyanosis, or edema. No obvious deformities. NEUROLOGICAL: Awake and alert. No obvious cranial nerve deficits. Motor grossly within normal limits. Normal speech. PSYCHIATRIC: Appropriate mood and affect; insight and judgment normal. Laboratory Laboratory Tests Test 06/25/17 04:20 Activated Partial Thromboplast Time 59.4 SEC Fasting Glucose 95 MG/DL Triglycerides Level 190 MG/DL Cholesterol Level 121 MG/DL LDL Cholesterol 53 MG/DL HDL Cholesterol 30.1 MG/DL Cholesterol/HDL Ratio 4.01 RATIO Assessment and Plan Problem List: (1) NSTEMI (non-ST elevated myocardial infarction) ICD Codes: I21.4 - Non-ST elevation (NSTEMI) myocardial infarction Status: Acute Assessment and Plan 63 yo WF with no prior cardiac history presented with chest pain which has no resolved. Asymptomatic overnight. NSTEMI- will plan for [facility] today. cardiomyopathy- reduced EF 30-35% with moderate anterio-apical hypokinesis. Perri Reyes Jun 25, 2017 07:52
--- NOTE | 2017-06-25 09:10 | HHI.PR ---
Subjective Remarks The patient endorsed severe anxiety recently. She said she started to develop her chest pain when she was a anger management class and developed pain in the chest, neck and back. She also had palpitations. She currently still gets stressed out and has been having some intermittent chest pain. Objective Vitals Vital Signs Date Time Temp Pulse Resp B/P (MAP) Pulse Ox O2 Delivery O2 Flow Rate FiO2 06/25/17 06:09 61 06/25/17 05:10 63 06/25/17 04:17 97.5 72 16 114/58 (76) 98 06/25/17 04:17 59 06/25/17 02:02 63 06/25/17 01:00 66 06/25/17 00:00 66 06/24/17 23:00 98.2 67 18 104/58 (73) 99 06/24/17 23:00 69 06/24/17 22:00 66 06/24/17 21:00 74 06/24/17 20:00 74 06/24/17 19:05 98.1 74 18 103/61 (75) 96 06/24/17 19:05 93 06/24/17 18:00 72 06/24/17 17:00 74 06/24/17 16:00 70 06/24/17 15:00 73 06/24/17 15:00 98.6 78 16 103/59 (74) 99 06/24/17 14:00 75 06/24/17 13:00 78 06/24/17 12:00 75 06/24/17 11:00 97.9 77 16 117/74 (88) 98 06/24/17 11:00 76 06/24/17 10:00 77 I/O 06/24/17 06/24/17 06/24/17 06/25/17 06/25/17 06/25/17 07:00 15:00 23:00 07:00 15:00 23:00 Intake Total 360 ml 320 ml 240 ml Output Total 300 ml 900 ml 350 ml Balance 60 ml -580 ml -110 ml Intake Oral 360 ml 320 ml 240 ml Output Urine Total 300 ml 900 ml 350 ml # Voids 1 Result Diagram: 06/23/17 1230 06/23/17 2330 Imaging Last Impressions Chest X-Ray 06/23/17 1235 Signed Impressions: Service Date/Time: Friday, June 23, 2017 12:42 - CONCLUSION: No acute disease. Chris Shanks MD Objective Remarks GENERAL: No acute distress. SKIN: Warm and dry. EYES: No scleral icterus. No injection or drainage. ENT: No nasal bleeding or discharge. Mucous membranes pink and moist. CARDIOVASCULAR: Regular rate and rhythm. No murmurs. RESPIRATORY: No accessory muscle use. Clear to auscultation. Breath sounds equal bilaterally. GASTROINTESTINAL: Abdomen soft, non-tender, nondistended. Hepatic and splenic margins not palpable. EXTREMITIES: No clubbing, cyanosis, or edema. No obvious deformities. MUSCULOSKELETAL: Extremities without clubbing, cyanosis, or edema. No obvious deformities. Grossly intact ROM with 5/5 strength in upper and lower extremities proximally. NEUROLOGICAL: Awake and alert. No obvious cranial nerve deficits. No facial droop nor slurred speech noted. PSYCHIATRIC: Teary-eyed. Medications and IVs Current Medications Medications (Trade) Dose Ordered Sig/Kel Route Start Time Stop Time Status Last Admin (NS Flush) 2 ml UNSCH PRN IVF 06/23/17 12:45 (Heparin Inj) 5,000 units UNSCH PRN IV 06/23/17 20:30 (Heparin Inj) 2,500 units UNSCH PRN IV 06/23/17 20:30 (Lipitor) 40 mg HS PO 06/24/17 21:00 06/24/17 20:36 (Nitrostat Sl) 0.3 mg Q5M PRN SL 06/23/17 17:00 (Prinivil) 40 mg DAILY PO 06/24/17 09:00 Future Hold (Morphine Inj) 2 mg Q3H PRN SQ 06/23/17 20:45 Heparin Sodium/ Dextrose 250 ml @ 6 mls/hr TITRATE PRN IV 06/25/17 07:30 A/P Assessment and Plan NSTEMI Troponins were elevated at 4.8. Cardiology consult appreciated. Chest pain has resolved. EKG without acute ischemia. Chest x-ray unremarkable. Echo shows reduced EF 30-35% with moderate anterio-apical hypokinesis. LDL not elevated. - Continue heparin drip. - continue statin. - Check hemoglobin A1c. - telemetry. - Catheterization today per cardiology. HTN Blood pressure has been well-controlled. - hold home lisinopril. - Hold off on starting a beta kim at this time as blood pressure has been on the low side. Anxiety Chronic problem. The patient does not wish to speak with the psychiatrist at this time. - The patient was encouraged to avoid anxiety provoking situations as it can lead to further cardiac events. Hyperglycemia Glucose was elevated upon presentation. Possibly stress reaction. - Check a hemoglobin A1c. heparin gtt for DVT prevention Discharge Planning Awaiting cardiac catheterization and cardiology clearance Ayo Lloyd DO Jun 25, 2017 09:10
[2017-06-25] MEDS ORDERED: HEPARIN-NS/PF INJ 1,000 ML ONE (12:20)
[2017-06-25] MEDS ORDERED: HEPARIN SODIUM - IV 10,000 UNITS/10 ML VIAL ONE (12:21)
[2017-06-25] MEDS ORDERED: MIDAZOLAM HCL 2 MG/2 ML VIAL ONE (12:21)
[2017-06-25] MEDS ORDERED: NITROGLYCERIN INJ 5 ML ONE (12:23)
[2017-06-25] MEDS ORDERED: DEFIB EXTERNAL (13:12)
[2017-06-25] MEDS ORDERED: MISC INFORMATION XX ONE (13:15)
[2017-06-25] MEDS ORDERED: BACITRACIN OINT 0.9 GM PKT TOP ONE (13:15)
--- NOTE | 2017-06-25 13:15 | CATHPROC ---
[facility] HIS Report Study Information Study Number Admission Scheduled Start Study Start [id number] 06/23/2017 06/25/2017 Jun 25 2017 12:10PM Study Type Left Heart Cath Referring Institution Admit Source Facility Department 1 Emergency department [facility] Physician and Clinical Staff Initial Endy Calle Miller Supervisor Natalie Yousif BSN Recorder Cammy Edmond RCIS TECH2 Scrub Tomas Morrison RCIS(BS) Procedures Performed Procedure Location (Site) Vessel Name Coronary Angiograms LCA Left Coronary Coronary Angiograms RCA Right Coronary Equipment Time Senior Underwriter Description Size Mfg Part Number Used/Scraped TRANSDUCER, TRUWAVE [id number] 12:11 RUSSELL GALDAMEZ * Used W/STOCKCOCK *[id number] *[id number] *[id number] 12:11 [employer] PACK, CCL CUSTOM * Used *[id number] 12:11 [employer] SUPPORT, ARTERIAL ADULT [id number] *[id number] Used [id number] 12:11 [employer] PACER PEN, SKIN DUAL W/ RULER * Used *[id number] BAND, RADIAL COMPRESSION TR [id number] 13:04 Suksh Tech. 24CM Used SHORT 24 *[id number] SHEATH, FR6 RADIAL PRELUDE 12:11 [employer] Tech. FR 6 [id number] Used EASE 11CM [id number] 12:11 [employer]. WIRE, EXCHANGE 260CM 3MMJ 260CM Used *[id number] 12:11 NYCOMED OMNIPAQUE, 350 MG, 150ML 150ML [id number] Used [id number] 12:11 [employer] BLANKET,WARM AIR CCL * Used *[id number] History: Current Medications Medication Dosage/Unit Route Frequency Last Date/Time Taken LISINOPRIL History: Allergies Allergy Reaction tramadol severe vomiting liquid codeine severe vomiting History: Risk Factors Family History of Hypertension Dyslipidemia Previous DE Previous Heart Failure Premature CAD Yes Yes No No No Prior Valve Prior PCI Prior CABG Surgery No No No Cerebrovascular Peripheral Artery Chronic Lung On Dialysis Diabetes Disease Disease Disease No No No No No History: Symptoms/Diagnosis Selection Items Chest pain History: Stress Tests Stress or Imaging Studies Performed No History: Other Current Smoker No Labs Hgb (g/dl) Hct (%) WBC (l/cumm) Platelets (thousands) 11.60-17.00 35.00-51.00 4.00-11.00 150.00-450.00 12.8 38.1 5.8 249 Glucose (mg/dl) BUN (mg/dl) Creatinine (mg/dl) BUN:Creatinine (1:x) 74.00-106.00 7.00-18.00 0.50-1.30 10.00-20.00 95 16 0.8 20 Na (meq/l) K (meq/l) Cl (meq/l) CO2 (mmol/L) Ca (mg/dl) 136.00-145.00 3.50-5.10 98.00-107.00 21.00-32.00 8.50-10.10 143 3.5 107 29.2 8.9 PT (sec) PTT (sec) INR (PTT:PT) 9.80-11.60 24.30-30.10 0.90-1.10 10.3 59.4 0.9 Troponin I (ng/ml) CPK (u/l) CPK-MB (ng/ML) 0.02-0.05 26.00-308.00 0.50-3.60 2.93 84 Not Drawn Medication Medication Total Dose (Bolus/Oral) Medication Total Dosage/Unit 1% XYLOCAINE 20 mL FENTANYL 75 mcg HEPARIN 3000 units NTG (IC) 200 mcg VERSED 2 mg Medications (Bolus/Oral) Medication Time Given Dosage/Unit Administered By Reason 06/25/2017 12:49:47 VERSED 1 mg Natalie Yousif 1 mg VERSED given in lab by Natalie Yousif BSN in Right Wrist via Peripheral IV. Ordered by Endy Sánchez. 06/25/2017 12:50:09 FENTANYL 50 mcg Natalie Yousif 50 mcg FENTANYL given in lab by Natalie Yousif BSN in Right Wrist via Peripheral IV. Ordered by Endy Mason. 06/25/2017 12:54:15 1% XYLOCAINE 20 mL Endy Mason 20 mL 1% XYLOCAINE given in lab by Endy Mason in Right Radial via Subcutaneous. Ordered by Endy Mason. 06/25/2017 12:56:09 NTG (IC) 200 mcg Endy Mason 200 mcg NTG (IC) given in lab by Endy Mason in Right Radial via Intra-coronary. Ordered by Endy Mason. 06/25/2017 12:57:50 HEPARIN 3000 units Natalie Yousif PM 3000 units HEPARIN given in lab by Natalie Yousif BSN in Right Wrist via Peripheral IV. Ordered by Endy Mason. 06/25/2017 12:58:43 VERSED 1 mg Natalie Yousif PM 1 mg VERSED given in lab by Natalie Yousif BSN in Right Wrist via Peripheral IV. Ordered by Endy Sánchez. 06/25/2017 12:59:00 FENTANYL 25 mcg Natalie Yousif PM 25 mcg FENTANYL given in lab by Natalie Yousif BSN in Right Wrist via Peripheral IV. Ordered by Endy Mason. Medication (Drip) Medication Time Given Dosage/Unit Concentration/Unit Diluent (ml) Solutio n 06/25/2017 12:10:45 IV Solutions 0 mL (IV) 500 NaCl .9 PM Patient arrived on IV Solutions in Right Wrist via Peripheral IV. Pump/Drip Flow = 20 ml/hr using NaC l .9. Initial Case Assessment Cardiovascular HR Rhythm NIBP Chest Pain 90 sr 171/96 1 Circulatory - Right Pulses Dorsalis Pedis Femoral Radial 1 2 2 Scale (0,1,2,3,4,d) Scale (0,1,2,3,4,d) Neurological State Oriented to time-place- Alert Moves all extremities person Respiration - General Respiration Rate SpO2 (%) (B/min) 13 100 Final Case Assessment Cardiovascular HR Rhythm NIBP Chest Pain 89 SR 133/76 0 Circulatory - Right Pulses Dorsalis Pedis Femoral Radial 1 2 2 Scale (0,1,2,3,4,d) Scale (0,1,2,3,4,d) Neurological State Oriented to time-place- Alert Moves all extremities person Respiration - General Respiration Rate SpO2 (%) (B/min) 16 94 Chronological Log Time Study Chronological Log 12:10:34 Patient arrived via Bed. 12:10:34 Patient Name, D.O.B, / Armband Verified By R.N. 12:10:36 Consent signed by the physician and the patient and verified by the [facility] staff. 12:10:36 Pre-op and post- op instructions given; patient acknowledges understanding of instructions. 12:10:37 Verbal Stimulation=2 Physical Stimulation=2 Airway=2 Respiration=2 TOTAL=8. (0=absent, 1=li mited, 2=present) 12:10:40 Patient has been NPO for More than 6Hrs. 12:10:41 Skin Breakdown-none 12:10:42 Iain Prominences Protected 12:10:44 A # 20 IV was noted in the Wrist (right). Grade = patent 12:10:45 Patient arrived on IV Solutions in Right Wrist via Peripheral IV. Pump/Drip Flow = 20 ml/hr using NaCl .9. 12:10:46 History and physical on the chart or being dictated. Vitals capture started with the following parameters, Patient=Adult, Interval=5 min, Initial Pr qjnodj=516 mmHg, 12:13:26 Deflation Rate=5 mmHg, Cuff placed on Left Arm 12:14:23 HR=91 bpm, MCWT=517/91 mmhg, DcI2=853.0 %, Resp=14 B/min, Pain=0, Philly=10, Mendez=2 12:19:02 MF=105 bpm, HHGB=292/96 mmhg, WcK4=938.0 %, Resp=14 B/min, Philly=10 Assessment: Initial Case, HR=90 BPM, Rhythm=sr, JHKQ=080/96 mmhg, Chest Pain=1 Right Pulses: Remy Ped=1, Femoral=2, Radial=2 12:20:30 Neurological: State=Alert, Ox3, COOPER Respiration: Resp=13 B/min, MgO6=452 % 12:21:15 Right Radial and right groin prepped with 2% chlorhexidine, and draped after a 3 min. waiti ng time. 12::41 Reference ECG taken 12:24:10 MD paged 12:24:33 HR=89 bpm, AQKH=049/93 mmhg, WtI4=469.0 %, Resp=15 B/min 12:29:04 HR=92 bpm, CXWO=228/85 mmhg, CzR7=975.0 %, Resp=9 B/min, Pain=0, Philly=10 12:29:20 Pressure channel 1 zeroed. 12:29:43 MD responded 12:34:03 HR=84 bpm, FFAH=833/84 mmhg, ShW7=465.0 %, Resp=11 B/min, Pain=0, Philly=10, Mendez=2 12:39:02 HR=87 bpm, ICCJ=213/86 mmhg, SpO2=99.0 %, Resp=13 B/min 12:44:03 HR=89 bpm, ZJOA=930/88 mmhg, SpO2=99.0 %, Resp=12 B/min, Pain=0, Philly=10, Mendez=2 12:48:19 MD arrived. 12:49:04 HR=88 bpm, OVTK=160/92 mmhg, SpO2=99.0 %, Resp=17 B/min 12:49:47 1 mg VERSED given in lab by Natalie Yousif BSN in Right Wrist via Peripheral IV. Orde red by Endy Mason. 50 mcg FENTANYL given in lab by Natalie Yousif BSN in Right Wrist via Peripheral IV. Orde red by Marlon, 12:50:09 Endy. Time Out. Correct patient, correct procedure, correct physician, power injector not loaded with contrast with surgical 12:53:19 team present. Time Out Concurred by MD and individual staff in procedure. 12:53:37 Case Start 12:54:07 HR=83 bpm, EDLD=637/81 mmhg, SpO2=93.0 %, Resp=14 B/min 12:54:15 20 mL 1% XYLOCAINE given in lab by Endy Mason in Right Radial via Subcutaneous. Ordered by Endy Mason. 12:55:41 Access site was Radial Artery. RIGHT A SHEATH, FR6 RADIAL PRELUDE EASE 11CM FR 6 was advanced into the Radial (right) using the Perc utaneous 12:55:45 technique. 12:56:09 200 mcg NTG (IC) given in lab by Endy Mason in Right Radial via Intra-coronary. Ordered by Endy Mason. A JR 5.0 INFINITI CATHETER FR 5 was advanced over a wire. OMNIPAQUE, 350 MG, 150ML 150ML was us ed for 12:57:48 injections. 3000 units HEPARIN given in lab by Natalie Yousif BSN in Right Wrist via Peripheral IV. O rdered by Marlon, 12:57:50 Endy. Recorded Pressure: LV, CS=136, Condition=Condition 1 12:57:54 (Left Ventricle) LV 141/-3/6 Recorded Pressure: LV, Ao, ZH=861, Condition=Condition 1 12:58:12 (Left Ventricle) LV 134/3/0, (Aorta) Ao 167/97/129 12:58:43 1 mg VERSED given in lab by Natalie Yousif BSN in Right Wrist via Peripheral IV. Orde red by Endy Mason. 25 mcg FENTANYL given in lab by Natalie Yousif BSN in Right Wrist via Peripheral IV. Orde red by Marlon, 12:59:00 Endy. 12:59:04 HR=86 bpm, HKZA=634/82 mmhg, SpO2=91.0 %, Resp=10 B/min 12:59:05 The RCA was injected and visualized at various angles. OMNIPAQUE, 350 MG, 150ML 150ML use d. After removing the current catheter a JL 3.5 INFINITI CATHETER FR 5 was advanced over a WIRE, EXCHANGE 260CM 13:00:37 3MMJ 260CM. 13:01:49 The LCA was injected and visualized at various angles. OMNIPAQUE, 350 MG, 150ML 150ML use d. 13:02:39 Catheter was removed 13:03:02 Case End 13:04:01 HR=90 bpm, YGQN=370/76 mmhg, SpO2=94 %, Resp=10 B/min, Pain=0, Philly=10, Mendez=2 Assessment: Final Case, HR=89 BPM, Rhythm=SR, DGTT=319/76 mmhg, Chest Pain=0 Right Pulses: Remy Ped=1, Femoral=2, Radial=2 13:06:58 Neurological: State=Alert, Ox3, COOPER Respiration: Resp=16 B/min, SpO2=94 % Radial Compression Device Used. 12 mLs of air placed in BAND, RADIAL COMPRESSION TR SHORT 24 2 4CM. Affected 13:07:42 hand 94 % O2 saturation. 13:08:03 No case complications noted. 13:08:04 Cine recording checked. 13:08:05 Bedside Report will be given. 13:08:14 Patient moved to BED 13:09:04 HR=81 bpm, GNKE=923/73 mmhg, SpO2=91.0 %, Resp=12 B/min 13:13:38 Vitals capture stopped. 13:14:40 [facility] End Study - Contrast Media Used In Study Contrast Total Opened (mL) Total Used (mL) Total Wasted (mL) Omnipaque 50 50 0 End Study - Maximum Contrast Load Max Contrast Load (mL) 315.6 End Study - Radiation Exposure Fluoro Time (minutes) 2.3 End Study - Sheaths Sheaths Pulled By Sheath Hold Time (min) Tomas Morrison End Study - Patient Disposition Complications Transferred To Critical Care Bed
--- NOTE | 2017-06-25 13:45 | MA ---
cc: SUSAN MUÑOZ DATE: 06/25/2017 INDICATION [id number] MS. PROCEDURES PERFORMED 1. Fluoroscopy with interpretation. 2. Coronary angiography. 3. Left heart catheterization. METHOD The risks, benefits and alternatives were discussed with the patient. The patient understood and consented to the procedure. The patient was brought to the catheterization lab and placed on the catheterization table. The right wrist was prepped and draped in sterile fashion. Right wrist was anesthetized with 2% lidocaine. Right radial artery was cannulated and a 6-Belgian 11 cm sheath was placed without difficulty. 200 mcg of intra-arterial nitroglycerin in addition to 3000 units of intravenous heparin was administered. LEFT HEART CATHETERIZATION Intraventricular hemodynamics measured at 110/10 mmHg with left ventricular end-diastolic pressure 12 mmHg. No aortic stenosis by transaortic valvular pullback gradient. CORONARY ANGIOGRAPHY 1. Left main is short but angiographically normal. 2. Left anterior descending coronary is tortuous but angiographically normal. 3. Left circumflex coronary gives rise to an obtuse marginal branch, angiographically normal. 4. Right coronary is dominant vessel giving rise to posterior descending branch, angiographically normal. CONCLUSION 1. Nonischemic cardiomyopathy. 2. Normal coronary arteries. PLAN Despite elevated troponin the patient did not have acute coronary event. Cardiomyopathy is nonischemic. Etiology is unknown although, the echocardiogram showed severely reduced left ventricular systolic function with ejection fraction of 30%. The wall motion was not classic for Takotsubo but possible. Alternative would be Prinzmetal angina which may have been induced by her extreme stress event. At this point we will proceed with medical management. Given her cardiomyopathy and risk for sudden cardiac due to arrhythmia, we will have a Life-Vest placed. Lastly, she will need a follow up Echo in 3 months to monitor for improvement. Will continue with medical therapy. MD NUZHAT Rob/RADHA /1:22 PM /1:28 PM
[2017-06-25] MEDS ORDERED: IOHEXOL 350 MG/ML 50 ML BTL (for Cath Lab) OTHER ONE (14:11)
[2017-06-25 16:18] LABS: HEMOGLOBIN A1a 1.4 %; HEMOGLOBIN A1b 1.8 %; HEMOGLOBIN Ao 84.9 %; HEMOGLOBIN LA1C 1.9 %; HEMOGLOBIN P3 3.8 %
[2017-06-25] MEDS ORDERED: ATOR40TA16 PO (16:28)
[2017-06-25] MEDS ORDERED: LISI-515 PO (16:28)
--- NOTE | 2017-06-25 16:28 | HHI.DCPOC ---
Discharge Care Plan Diagnosis: (1) Hypertension (2) NSTEMI (non-ST elevated myocardial infarction) (3) Nonischemic cardiomyopathy Goals to Promote Your Health * To prevent worsening of your condition and complications * To maintain your health at the optimal level Directions to Meet Your Goals Take your medications as prescribed Follow your dietary instruction Follow activity as directed Keep your appointments as scheduled Take your immunizations and boosters as scheduled If your symptoms worsen call your PCP, if no PCP go to Urgent Care Center or Emergency Room Smoking is Dangerous to Your Health. Avoid second hand smoke Call the 24-hour hour crisis hotline for domestic abuse at Ayo Lloyd DO Jun 25, 2017 16:28
--- NOTE | 2017-06-25 16:33 | HHI.DS ---
Discharge Summary Admission Date Jun 23, 2017 at 14:23 Discharge Date: Jun 25, 2017 Admitting Diagnosis NSTEMI (1) Nonischemic cardiomyopathy ICD Code: I42.8 - Other cardiomyopathies Diagnosis: Principal (2) Hypertension ICD Code: I10 - Essential (primary) hypertension Status: Acute Procedures Cardiac catheterization Brief History - From Admission 62-year-old white female being admitted for an NSTEMI. Patient was in her usual state of health until about earlier this morning when she was in an anger management class and suddenly experienced an onset of 10 out of 10 crushing chest pain that radiated to her left arm. Patient had some shortness of breath and mild nausea. No vomiting. Was not able to identify any alleviating or exacerbating factors until she got to the emergency room where she got some nitroglycerin which helped her pain. Patient denies ever experiencing such an event in the past, denies any cardiac history. CBC/BMP: 06/23/17 1230 06/23/17 2330 Significant Findings Laboratory Tests Test 06/23/17 12:30 06/23/17 17:40 06/23/17 23:30 06/24/17 05:25 Random Glucose 107 MG/DL (74-106) 158 MG/DL (74-106) Estimat Glomerular Filtration Rate 75 ML/MIN (>89) 73 ML/MIN (>89) Troponin I 1.07 NG/ML (0.02-0.05) 4.80 NG/ML (0.02-0.05) 2.93 NG/ML (0.02-0.05) Activated Partial Thromboplast Time 57.3 SEC (24.3-30.1) 55.7 SEC (24.3-30.1) Test 06/25/17 04:20 Activated Partial Thromboplast Time 59.4 SEC (24.3-30.1) Triglycerides Level 190 MG/DL (42-150) HDL Cholesterol 30.1 MG/DL (40.0-60.0) Imaging Last Impressions Chest X-Ray 06/23/17 1235 Signed Impressions: Service Date/Time: Friday, June 23, 2017 12:42 - CONCLUSION: No acute disease. Chris Shanks MD PE at Discharge GENERAL: No acute distress. SKIN: Warm and dry. EYES: No scleral icterus. No injection or drainage. ENT: No nasal bleeding or discharge. Mucous membranes pink and moist. CARDIOVASCULAR: Regular rate and rhythm. No murmurs. RESPIRATORY: No accessory muscle use. Clear to auscultation. Breath sounds equal bilaterally. GASTROINTESTINAL: Abdomen soft, non-tender, nondistended. Hepatic and splenic margins not palpable. EXTREMITIES: No clubbing, cyanosis, or edema. No obvious deformities. MUSCULOSKELETAL: Extremities without clubbing, cyanosis, or edema. No obvious deformities. Grossly intact ROM with 5/5 strength in upper and lower extremities proximally. NEUROLOGICAL: Awake and alert. No obvious cranial nerve deficits. No facial droop nor slurred speech noted. PSYCHIATRIC: Teary-eyed. Hospital Course NSTEMI Troponins were elevated at 4.8. Cardiology was consulted. EKG without acute ischemia. Chest x-ray unremarkable. Echo showed reduced EF 30-35% with moderate anterio-apical hypokinesis. LDL not elevated. She was continued on a heparin drip. She was continued on a statin. She was monitored on telemetry. Catheterization per cardiology 06/25/17 without obstructive coronary disease. The pt was cleared for discharge by cardiology. She will need a Life-Vest arranged prior to discharge. Case management has been notified. She will continue lisinopril and a statin. She will follow up with cardiology as an outpt. HTN Blood pressure has been well-controlled. She will resume lisinopril upon discharge. Anxiety Chronic problem. The patient does not wish to speak with the psychiatrist at this time. The patient was encouraged to avoid anxiety provoking situations. She was referred to psychiatry upon discharge. Hyperglycemia Glucose was elevated upon presentation. Hemoglobin A1c is pending. She will follow up with her PCP. Pt Condition on Discharge: Stable Discharge Disposition: Discharge Home Discharge Time: > 30 minutes Discharge Instructions DIET: Follow Instructions for: Heart Healthy Diet Activities you can perform: Weight Bearing as Mague Follow up Referrals: Cardiology - [address] Mason PCP Follow-up - 1 Week Psychiatry Adult New Medications: Defibrillator Jacket (Defibrillator Jacket) 1 Ea Device EA EXTERNAL ONCE for cardiomyopathy, #1 3 Refills Energy = 150 Joules; VT Threshold = 150 BPM; VF Threshold = 200 BPM Use up to 90 days only Atorvastatin (Atorvastatin) 40 Mg Tab 40 MG PO HS for Cholesterol Management, #30 TAB Lisinopril (Lisinopril) 20 Mg Tab 20 MG PO DAILY for Blood Pressure Management, #30 TAB Discontinued Medications: Lisinopril (Lisinopril) 20 Mg Tab 20 MG PO BID, #30 TAB 0 Refills Ayo Lloyd DO Jun 25, 2017 16:33
[2017-06-25] MEDS: ATORVASTATIN 40 MG TAB PO SCH (20:13)
[2017-06-26] MEDS ORDERED: LISINOPRIL 20 MG TAB PO SCH (09:00)
== END 2017-06-25 20:20 | disposition home or self-care (01) | DRG 287 ==
LOC: PHED 12:25 → PHEDA 14:23 → HCPC 20:00
PROVIDERS: ADMIT Hospitalist; ATTEND Hospitalist
PROC: 4A023N7 Measurement of Cardiac Sampling and Pressure, Left Heart, Percutaneous Approach (ICD-10-PCS; 2017-06-25)
PROC: B2111ZZ Fluoroscopy of Multiple Coronary Arteries using Low Osmolar Contrast (ICD-10-PCS; principal; 2017-06-25 12:15)
DX: I42.8 Other cardiomyopathies (principal); I10 Essential (primary) hypertension; F41.9 Anxiety disorder, unspecified; R74.8 Abnormal levels of other serum enzymes; R73.9 Hyperglycemia, unspecified; M79.7 Fibromyalgia; M19.90 Unspecified osteoarthritis, unspecified site
CPT/HCPCS: 71010; 80048; 80053; 80061; 82550; 82947; 83036; 83735; 84484; 85025; 85610; 85730; 93005; 93306; 93458; 96374; 96375; 99152; C1769; C1893; J1644; J2250; J2270; J2405; J3010; Q9967

== ENCOUNTER 2017-09-17 11:56 | Emergency (ER) | payer MEDICARE ==
[~2017-09-17] VITALS: Ht 154.9 cm; Wt 50.0 kg
[~2017-09-17 11:56] MED LIST changes: -AMOX250C CHEW; +ATOR40TA16 PO; +DEFIB EXTERNAL
[2017-09-17 12:00] VITALS: BP 159/69; PULSE 83; RESP 16; TEMP 97.9; O2SAT 98
== END 2017-09-17 12:46 | disposition left against medical advice (07) ==
LOC: PHED 11:56
DX: Z53.21 Procedure and treatment not carried out due to patient leaving prior to being seen by health care provider (principal)
CPT/HCPCS: 99281